=== PATIENT | female | born 1990 | race Caucasian/White ===

== ENCOUNTER 2016-12-03 01:07 | Emergency (ER) | payer MEDICAID, OTHER ==
[2016-12-03 01:24] VITALS: BP 114/52
--- NOTE | 2016-12-03 02:11 | EDM.PDOC ---
ED HPI GENERAL MEDICAL PROBLEM - General Chief Complaint: General Stated Complaint: took too much medication Time Seen by Provider: 12/03/16 01:38 Source of Information: Reports: Patient History Limitations: Reports: No limitations - History of Present Illness INITIAL COMMENTS - FREE TEXT/NARRATIVE: History and physical: History of present illness: [Patient is brought to the emergency room by [facility]. She reports that her had been shouting at her for the last several hours and she called 911 to avoid any further conflict. She states that she's feeling well and has no complaints or concerns except for the fact that she's been taking 3 tablets of citalopram 10 mg daily. She takes 2 in the morning and one at bedtime. She started this medication a couple of weeks ago and was told that it may take time to build up her system. She was prescribed 10 mg daily. She was hoping that the medication began to work sooner if he took more of it. She absolutely denies any suicidal thoughts or ideation as well as homicidal thoughts. She states that she did not take extra medication with a goal of overdose but only to alleviate her depressive symptoms sooner. She admits to a strained relationship with her . They are in the process of going through a divorce and possibly moving to [place]. They have 4 children together. has become frustrated with patient's depression and was yelling at her this evening because she doesn't feel better. Patient physically has no complaints or concerns.] Review of Systems: As per history of present illness and below otherwise all systems reviewed and negative. Past medical history: As per history of present illness and as reviewed below otherwise noncontributory. Surgical history: As per history of present illness and is reviewed below other [place]bot noncontributory. Social history: No reported history of drug or alcohol abuse. Family history: As per history of present illness and is reviewed below otherwise noncontributory. Physical exam: General: well developed, Well nourished female in no acute distress. HEENT: Atraumatic, normocephalic. Neuro: Awake, alert, oriented. Motor and sensory unremarkable. Exam nonfocal Psych: Does not make much eye contact and conversation. Flat affect. Impression: [Misuse of medications Depression] Plan: [Patient is discharged from the emergency room with strict instructions to follow up with her primary care provider tomorrow and to take medications as prescribed. Patient's presentation certainly does not indicate any suicidal ideation but more attention-seeking behavior for her . She is advised to stay with a friend brendon and to not reengage with her at her home. Recommend recheck with PCP and for possible counseling referral.] Definitive disposition and diagnosis is appropriate pending reevaluation and review of above. - Related Data Allergies Allergy/AdvReac Type Severity Reaction Status Date / Time No Known Allergies Allergy Verified 12/03/16 01:24 Home Meds: Home Meds Citalopram Hydrobromide [Citalopram HBr] 10 mg PO DAILY 12/03/16 [History] Past Medical History Respiratory History: Reports: Bronchitis, recurrent, Pneumonia, recurrent Gastrointestinal History: Reports: Cholelithiasis Genitourinary History: Reports: None [employer] History: Reports: Musculoskeletal History: Reports: Back pain, chronic Psychiatric History: Reports: Depression Endocrine/Metabolic History: Reports: Obesity/BMI 30+ Hematologic History: Reports: Anemia - Past Surgical History HEENT Surgical History: Reports: Oral surgery Respiratory Surgical History: Reports: None GI Surgical History: Reports: Cholecystectomy Female Surgical History: Reports: D&C Social & Family History - Family History Family Medical History: Noncontributory - Tobacco Use Smoking Status *Q: Current Every Day Smoker Years of Tobacco use: 8 Packs/Tins Daily: 1 - Caffeine Use Caffeine Use: Reports: None - Recreational Drug Use Recreational Drug Use: No ED ROS GENERAL - Review of Systems Review Of Systems: ROS reveals no pertinent complaints other than HPI. ED EXAM, GENERAL - Physical Exam Exam: See Below Course - Vital Signs Last Recorded V/S: Last Vital Signs Temp 97.6 F 12/03/16 01:19 Pulse 70 12/03/16 01:19 Resp 20 12/03/16 01:19 BP 114/52 L 12/03/16 01:19 Pulse Ox 100 12/03/16 01:19 Departure - Departure Time of Disposition: 02:10 Disposition: Home, Self-Care 01 Condition: good Clinical Impression: Depression Referrals: Ammy Lynn PA [Primary Care Provider] - Forms: ED Department Discharge Additional Instructions: The following information is given to patients seen in the emergency department who are being discharged home. This information is to outline your options for follow-up care and provides all patient seen in our emergency department with a follow-up referral. The need for follow-up, as well as the timing and circumstances, are variable depending upon the specifics of each emergency department visit. If you don't have a primary care physician on staff, we will provide you with a referral. We always advise to contact your personal physician following an emergency department visit to inform them of the circumstances of the visit and for follow-up with them and/or the need for any referrals to a consulting specialist. The emergency department will also refer you to a specialist when appropriate. This referral assures that you have the opportunity for follow-up care with a specialist. All of these measures are taken in an effort to provide you with optimal care, which includes your follow-up. Under all circumstances we always encourage you to contact your private physician who remains a resource for coordinating your care. When calling for follow-up care, please make the office aware that this follow-up is from your recent emergency room visit. If for any reason you are refused follow-up please contact the [facility] emergency department at and ask to speak to the emergency department nurse. [facility] [address] [address] Followup with your primary care provider in 48-72 hours. Do not make any changes to your medications. Take all of them as previously prescribed until you followup with your PCP. Stay with a friend this evening. Return to ER as needed as discussed.
== END 2016-12-03 02:25 | disposition home or self-care (01) ==
LOC: CC.ED 01:07
DX: F32.9 Major depressive disorder, single episode, unspecified (principal); F19.90 Other psychoactive substance use, unspecified, uncomplicated; E66.9 Obesity, unspecified; F17.210 Nicotine dependence, cigarettes, uncomplicated; Z79.899 Other long term (current) drug therapy; Z90.49 Acquired absence of other specified parts of digestive tract
CPT/HCPCS: 99284